=== PATIENT | female | born 1970 | race Caucasian/White ===

== ENCOUNTER → 2018-06-14 | Outpatient (CLI) | payer BC ==
[~2018-06-14] MED LIST: ANTIVERT25 MG PO; LEVOTHYROXINE 0.1 MG PO; ONDANSETRON HCL4 M2 PO; ZOFRAN ODT4 MG PO
--- NOTE | ~2018-06-14 | 24HR ---
[facility] [place] [address] 24 HR ELECTROCARDIOGRAM REPORT Name: JACOB DOWLING Room #: REG CL [facility]#: [id number] Admission: 06/14/18 Attend Phys: Syed Dubon MD Discharge: Date of : 74 Date of Service: 06/14/18 1116 Report #: [id number] THIS REPORT FOR: //name// [facility] Test Date: 2018-06-14 Test Time: 11:16:00 Pat Name: JACOB DOWLING Department: Room: Gender: Commercial [employer]: : 1970 Requested By: Syed Dubon Order Number: [id number] Reading MD: Андрей Garland Interpretive Statements 1. The study duration was 24 hours, technical quality good. 2. Predominant rhythm sinus rhythm at an average heart rate of 63 bpm, range 35-111 bpm. Longest RR interval 1.8 seconds. 3. Occasional isolated atrial premature complexes. No heart block. No atrial fibrillation or atrial flutter. No episodes of significant bradycardia. 4. Rare, isolated premature ventricular complexes. No ventricular couplets or episodes of ventricular tachycardia. 5. Symptoms of dizziness corresponded to sinus bradycardia (59 bpm). Electronically Signed On 06-16-2018 8:40:25 CDT by Андрей Garland [email or web address] <ELECTRONICALLY SIGNED> By: Андрей Garland MD, [facility] 06/16/18 0840 1116 1116 Андрей Garland MD, [facility] /EPI
== END ==
LOC: CV 10:34
DX: R55 Syncope and collapse (principal)

== ENCOUNTER → 2019-09-27 | Outpatient (CLI) | payer BC ==
[2019-09-27 10:09] VITALS: BP 108/60
--- NOTE | 2019-10-06 18:39 | CATHLAB ---
[facility] [place] [address] [place] [address] INVASIVE PROCEDURE REPORT Name: JACOB DOWLING Room #: REG ROMA Chris#: [id number] Admission: 09/27/19 Attend Phys: Matthew Lynn Discharge: Date of : 74 Report #: [id number] THIS REPORT FOR: cc: Malini Sung MD, Julie MD Lammoglia, Francisco J. MD ~ APPROVED REPORT Study performed: 09/27/2019 11:17:27 Patient Status: Out-Patient Room #: Event Personnel: Matthew Lopez MD Exam: Loop Recorder Removal Indications: end of device battery life and painful The patient is a 49 year-old female with a history of palpitations and near-syncope who had a loop implanted over 2 years ago presents with slight pain with device had end-of-life. Explanted Devices: [employer] implantable loop recorder serial number as noted in chart Procedure The patient underwent informed consent. We discussed the details of the procedure including the risks, which include, but not limited to bleeding, infection, vascular damage, cardiac perforation, and pneumothorax. After informed consent was obtained the patient was brought to the cardiac catheterization laboratory. Hold. Left chest is prepped in usual sterile manner and draped. Utilizing sterile technique and 1% lidocaine was instilled in the incision line. Using sharp and blunt dissection the capsule was identified and the device was delivered. Using a mtmrnv-po-blnen suture the subcutaneous tissue and pocket was obliterated. Using a running subcuticular stitch the incision was then closed up. Steri-Strips 4 x 4 OpSite were utilized. Complications The patient tolerated the procedure well and there were no complications associated with the procedure. Findings Specimens Removed: Yes [employer] implantable loop recorder [address] [address] INVASIVE PROCEDURE REPORT Name: JACOB DOWLING Room #: REG [facility]#: [id number] Admission: 09/27/19 Attend Phys: Matthew Moreno Discharge: Date of : 74 Report #: [id number] Conclusion 1. Successful explantation of a [employer] implantable loop Recommendations 1. Routine post explantation protocol <ELECTRONICALLY SIGNED> By: Matthew Lynn MD 10/06/191837 37 37 Matthew Lynn MD /INF
== END | disposition home or self-care (01) ==
LOC: CATH 09:24
DX: Z45.09 Encounter for adjustment and management of other cardiac device (principal); Z98.890 Other specified postprocedural states; Z79.899 Other long term (current) drug therapy; Z88.8 Allergy status to other drugs, medicaments and biological substances